=== PATIENT | male | born 1980 | race Caucasian/White ===

== ENCOUNTER 2016-06-14 16:18 | Emergency (ER) | payer OTHER ==
--- NOTE | ~2016-06-14 | CT4 ---
[facility] A Service of [facility] & [facility] RADIOLOGY TEXT RESULTS PATIENT: EDITH ISRAEL LOCATION: [facility] : [birth year] UNIT #: [id number] AGE: [address]: Sukumar Villeda MD SEX: M ORDER DR: [id number] [facility] [place] [address] [place], [place] [address] [id number] MR#: [id number] Acc #: [id number] NAME: EDITH ISRAEL. : 1980 SEX: M STUDY DATE/TIME: 06/14/2016 15:28 UNIT: [facility] ROOM: STUDY DESCRIPTION: CT Abd and Pelv Wo Cont Attending Physician: Sukumar Villeda M.D. Ordering Physician: Sukumar Villeda M.D. Primary Care Physician: Karel Panchal M.D. MEDICAL IMAGING REPORT This report is preliminary unless electronic signature is present EXAM CT of the abdomen and pelvis without contrast media, 06/14/2016 HISTORY SUPPLIED Left sided back pain radiating to the left anterior pelvis since yesterday at 10 a.m. TECHNIQUE Axial imaging of the abdomen and pelvis was performed without contrast media: This CT exam was performed with one or more of the following radiation dose reduction techniques: automatic exposure control, adjustment of mA and/or kV according to patient size, and iterative reconstruction. FINDINGS Scans through the lung bases show some minimal atelectasis. Liver, spleen, gallbladder, adrenal glands and pancreas are normal. The right kidney is normal. On the left the patient has a nonobstructing 2-3 mm stone in the midpole calyx and at least 2 additional 2-3 mm stones in a lower pole amarilis. There is mild left-sided hydronephrosis with an obstructing stone at the left ureteropelvic junction measuring 6 mm in diameter. Ureter beyond this point is of normal caliber to the bladder. No dilated or thickened loops of bowel are identified. The appendix is normal. Bladder itself is unremarkable. No pelvic masses are seen. CONCLUSION 6 mm obstructing stone in the left proximal ureter at the ureteropelvic junction with mild left-sided hydronephrosis. There are at least 2 or possibly 3 smaller stones which are nonobstructing in the calices of the left kidney. [facility]. [facility] A Service of [facility] & [facility] RADIOLOGY TEXT RESULTS PAT[facility]: ED[facility] ISRAEL [id number] [birth year] UNIT #: [id number] AGE: [address]: Sukumar Villeda MD SEX: M ORDER DR: Dictated by... Moreno Hays M.D. THIS IS AN ELECTRONICALLY VERIFIED REPORT Moreno Hays M.D. at 06/15/2016 2:53 PM CRAIG/roger TD: 06/14/2016 23:45 JOB #: [id number] MEDICAL IMAGING REPORT COPY
[2016-06-14 16:42] LABS: BLOOD UREA NITROGEN 14 mg/dL (9-23); BUN/CREATININE RATIO 11.66; CALCIUM SERUM 9.4 mg/dL (8.4-10.2); CARBON DIOXIDE 30 mmol/L (22-31); CHLORIDE 103 mmol/L (100-111); CREATININE SERUM 1.2 mg/dL (0.6-1.4); GLOM FILT RATE Estimated ABOVE60 mL/min (>60); GLUCOSE FASTING 91 mg/dL (70-110); POTASSIUM 4.4 mmol/L (3.5-5.1); SODIUM 141 mmol/L (135-145)
== END 2016-06-14 17:20 | disposition home or self-care (01) ==
LOC: CED 16:18
PROVIDERS: Emergency Medicine
DX: N13.2 Hydronephrosis with renal and ureteral calculous obstruction (principal)
CPT/HCPCS: 36415; 74176; 80048; 96361; 96374; 99284; J1885